=== PATIENT | male | born 1960 | race Caucasian/White ===

== ENCOUNTER 2018-10-07 14:15 | Inpatient (IN) | payer BC ==
[2018-10-07] MEDS ORDERED: NORMAL SALINE 1000 ML 1,000 ML IV ONE (14:23)
[2018-10-07] MEDS ORDERED: CEFTRIAXONE INJ 1000 MG VIAL IV ONE (14:31)
[2018-10-07] MEDS ORDERED: KETOROLAC TROMETHAMINE INJ/PF 30 MG/1 ML SDV IV ONE (14:31)
[2018-10-07] MEDS ORDERED: AZITHROMYCIN INJ 500 MG VIAL IV ONE (14:31)
--- NOTE | 2018-10-07 14:34 | ER Document Report ---
ED Medical Screen (RME) - General Chief Complaint: Fever Stated Complaint: FEVER, CHILLS, DIFFICULTY BREATHING Time Seen by Provider: 10/07/18 14:22 TRAVEL OUTSIDE OF THE [place] IN LAST 30 DAYS: No - HPI Notes: 10/07/18 14:32 Patient is a 58-year-old male that presents to the emergency department for chief complaint of fevers shortness of breath and dysuria. Patient reports about 1 week of myalgias fevers and chills. He had a negative outpatient influenza test. He has been having a cough and states he had a negative chest x -ray at his primary care doctor's office. His PCP did start him on Augmentin which he took 1 dose yesterday and 1 dose this morning. Patient had also been taking Bactrim for the last 8 days for prostatitis, the Bactrim was stopped yesterday when his PCP started Augmentin. He has a history of partial lung removal secondary to ruptured blebs. His last antipyretic was Tylenol at 1130 this morning ROS: GENERAL: fever,chills CV: Denies chest pain PHYSICAL EXAMINATION: GENERAL: Well-appearing, well-nourished and in no acute distress. HEAD: Atraumatic, normocephalic. EYES: Pupils equal round extraocular movements intact, conjunctiva are normal. ENT: Nares patent NECK: Normal range of motion LUNGS: No respiratory distress Musculoskeletal: Normal range of motion NEUROLOGICAL: Normal speech, normal gait. PSYCH: Normal mood, normal affect. MDM: Patient seen and examined for rapid initial assessment. Vital signs reviewed. A comprehensive ED assessment and evaluation of the patient, analysis of test results and completion of the medical decision making process will be conducted by additional ED providers. - Related Data Allergies/Adverse Reactions: No Known Allergies Allergy (Unverified 10/07/18 14:16) Physical Exam - Vital signs Vitals: Temp Pulse Resp BP Pulse Ox 102.8 F H 110 H 18 126/78 H 100 10/07/18 14:19 10/07/18 14:19 10/07/18 14:19 10/07/18 14:19 10/07/18 14:19 Course - Vital Signs Vital signs: Temp Pulse Resp BP Pulse Ox 102.8 F H 110 H 18 126/78 H 100 10/07/18 14:19 10/07/18 14:19 10/07/18 14:19 10/07/18 14:19 10/07/18 14:19
--- NOTE | 2018-10-07 15:19 | RADIOLOGY REPORT (SQ) ---
EXAM DESCRIPTION: CHEST SINGLE VIEW COMPLETED DATE/TIME: 10/07/2018 3:07 pm REASON FOR STUDY: cough COMPARISON: None. EXAM PARAMETERS: NUMBER OF VIEWS: One view. TECHNIQUE: Single frontal radiographic view of the chest acquired. RADIATION DOSE: NA LIMITATIONS: None. FINDINGS: LUNGS AND PLEURA: No opacities, masses or pneumothorax. No pleural effusion. MEDIASTINUM AND HILAR STRUCTURES: No masses. Contour normal. HEART AND VASCULAR STRUCTURES: Heart normal in size. Normal vasculature. BONES: No acute findings. HARDWARE: None in the chest. OTHER: No other significant finding. IMPRESSION: NO ACUTE RADIOGRAPHIC FINDING IN THE CHEST. TECHNICAL DOCUMENTATION: JOB ID: [id number] [employer]- All Rights Reserved Reading location - IP/workstation name: [email or web address]
[2018-10-07 15:44] LABS: ABSOLUTE EOSINOPHILS # (AUTO) 0.1 10^3/uL (0.0-0.6); ABSOLUTE MONOCYTES (AUTO) 0.8 10^3/uL (0.1-1.4); ABSOLUTE NEUT (AUTO) 10.7 10^3/uL (1.7-8.2); BASOPHILS % (AUTO) 0.2 % (0-2); EOSINOPHILS % (AUTO) 1.1 % (0-6); HEMATOCRIT 46.9 % (37.9-51.0); HEMOGLOBIN 15.7 g/dL (13.5-17.0); LYMPHOCYTES % (AUTO) 7.8 % (13-45); MEAN CORPUSCULAR HEMOGLOBIN 33.3 pg (27.0-33.4); MEAN CORPUSCULAR HGB CONC 33.6 g/dL (32.0-36.0); MEAN CORPUSCULAR VOLUME 99 fl (80-97); MONOCYTES % (AUTO) 6.4 % (3-13); PLATELET COUNT 194 10^3/uL (150-450); RED BLOOD COUNT 4.73 10^6/uL (4.35-5.55); RED CELL DISTRIBUTION WIDTH 13.6 % (11.5-14.0); SEGMENTED NEUTROPHILS % (AUTO) 84.5 % (42-78); TOTAL CELLS COUNTED % (AUTO) 100 %; WHITE BLOOD COUNT 12.7 10^3/uL (4.0-10.5)
[2018-10-07 15:46] LABS: APPEARANCE,URINE SLIGHTLY-CLOUDY; BILIRUBIN,URINE NEGATIVE (NEGATIVE); COLOR,URINE AMBER; GLUCOSE, URINE NEGATIVE (NEGATIVE); KETONES,URINE TRACE mg/dL (NEGATIVE); LEUKOCYTE ESTERASE,URINE NEGATIVE (NEGATIVE); NITRITE,URINE NEGATIVE (NEGATIVE); PROTEIN,URINE 100 mg/dL (NEGATIVE); URINE SPECIFIC GRAVITY 1.034
[2018-10-07] MEDS ORDERED: METOCLOPRAMIDE HCL INJ/PF 10 MG/2 ML SDV IV ONE ×2 (15:48→17:53)
[2018-10-07] MEDS ORDERED: DIPHENHYDRAMINE HCL 50 MG/ML VIAL IV ONE (15:49)
[2018-10-07] MEDS ORDERED: RINGERS SOLUTION,LACTATED 1,000 ML IV ONE ×2 (15:49→16:16)
--- NOTE | 2018-10-07 15:57 | ER Document Report ---
ED General <TOY VALDIVIA - Last Filed: 10/07/18 21:07> <ROSA ANGELA - Last Filed: 10/07/18 21:57> - General Mode of Arrival: Ambulatory Information source: Patient, Parent, [facility] Records TRAVEL OUTSIDE OF THE [place] IN LAST 30 DAYS: No - HPI Onset: Other Onset/Duration: Gradual, Intermittent Quality of pain: Achy, Cramping Severity: Mild Associated symptoms: Body/muscle aches, Nonproductive cough, Earache, Fever, Hurts to breath, Nausea, Shortness of breath, Weakness. denies: Chest pain, Diarrhea, Vomiting Exacerbated by: Denies Relieved by: Denies Similar symptoms previously: Yes Recently seen / treated by doctor: Yes <NEISHA HUBER - Last Filed: 10/08/18 09:37> - General Chief Complaint: Fever Stated Complaint: FEVER, CHILLS, DIFFICULTY BREATHING Time Seen by Provider: 10/07/18 14:22 Notes: 58-year-old male with COPD presents with complaint of fever, chills, dysuria, cough that has been ongoing for approximately 2 weeks. Patient states that 10 days ago he had significant rigors throughout the day. At that time he had a fever and took Tylenol which resolved the fever and his chills. Patient states that he has had intermittent fevers for the last 2 weeks. He was seen by his primary care physician and placed on Bactrim for prostatitis and when reexamined yesterday was placed on Augmentin unclear what the Augmentin was for.. Patient has a remote story of hepatitis C. He had a history of IV drug abuse but has not used in over 25 years. He does admit to occasionally still smoking. Patient admits to an intermittent abdominal pain, intermittent headache, pain with inspiration, intermittent cough. (NEISHA HUBER) - Related Data Allergies/Adverse Reactions: No Known Allergies Allergy (Unverified 10/07/18 14:16) Past Medical History - General Information source: Patient, Relative, [facility] Records - Social History Smoking Status: Current Some Day Smoker Cigarette use (# per day): Yes - 1 Smoking Education Provided: Yes - Smoking cessation counseling was provided for 4 minutes at the bedside Frequency of alcohol use: Rare Drug Abuse: None Lives with: Spouse/Significant other Family History: Reviewed & Not Pertinent Patient has suicidal ideation: No Patient has homicidal ideation: No Pulmonary Medical History: Reports: Hx COPD Renal/ Medical History: Denies: Hx Peritoneal Dialysis <NEISHA HUBER - Last Filed: 10/08/18 09:37> Review of Systems - Review of Systems Constitutional: Fever, Malaise, Recent illness EENT: Nose congestion Cardiovascular: denies: Chest pain, Dizziness Respiratory: Cough, Short of breath Gastrointestinal: Abdominal pain. denies: Vomiting, Black stools Genitourinary: Dysuria Male Genitourinary: Other - Enlarged prostate Musculoskeletal: Muscle pain, Muscle stiffness Skin: denies: Rash Hematologic/Lymphatic: No symptoms reported Neurological/Psychological: Headaches. denies: Confusion, Weakness, Seizure, Numbness -: Yes All other systems reviewed and negative <NEISHA HUBER - Last Filed: 10/08/18 09:37> Physical Exam <SHEATOY - Last Filed: 10/07/18 21:07> <ROSA ANGELA - Last Filed: 10/07/18 21:57> - Vital signs Interpretation: Tachycardic, Febrile <NEISHA HUBER - Last Filed: 10/08/18 09:37> - Vital signs Vitals: Temp Pulse Resp BP Pulse Ox 102.8 F H 110 H 18 126/78 H 100 10/07/18 14:19 10/07/18 14:19 10/07/18 14:19 10/07/18 14:19 10/07/18 14:19 - Notes Notes: PHYSICAL EXAMINATION: GENERAL: Thin, ill-appearing, no acute distress HEAD: Atraumatic, normocephalic. EYES: Pupils equal round and reactive to light, extraocular movements intact, sclera anicteric, conjunctiva are normal. ENT: Nares patent, oropharynx clear without exudates. Moist mucous membranes. No nuchal rigidity no meningismus. NECK: Normal range of motion, supple without lymphadenopathy LUNGS: Breath sounds clear to auscultation bilaterally and equal. No wheezes rales or rhonchi. HEART: Tachycardic with regular rhythm no murmurs. ABDOMEN: Diffuse abdominal tenderness without guarding or rebound. Musculoskeletal: Normal range of motion, no pitting or edema. No cyanosis. NEUROLOGICAL: Cranial nerves grossly intact. Normal speech, normal gait. Normal sensory, motor exams PSYCH: Normal mood, normal affect. SKIN: Warm, Dry, normal turgor, no rashes or lesions noted. (NEISHA HUBER) Course - Laboratory Result Diagrams: 10/07/18 15:07 10/07/18 15:07 <TOY VALDIVIA - Last Filed: 10/07/18 21:07> - Laboratory Result Diagrams: 10/07/18 15:07 10/07/18 15:07 <ROSA ANGELA - Last Filed: 10/07/18 21:57> - Laboratory Result Diagrams: 10/08/18 05:33 10/07/18 15:07 - Diagnostic Test Radiology reviewed: Image reviewed, Reports reviewed <NEISHA HUBER - Last Filed: 10/08/18 09:37> - Re-evaluation Re-evalutation: 10/07/18 19:27 Patient has been signed out to me by Dr. Huber. Patient is a 58-year-old male with COPD and history of IV drug use over 10 years ago, presents to the department complaining of multiple symptoms including fever, chills, dysuria, cough, headache, abdominal pain, and pain with inspiration intermittently for the last 2 weeks. She states the patient visited his PCP and was placed on Bactrim for prostatitis and was reexamined yesterday and had his medication changed to Augmentin for an unclear reason. also complains of mild disorientation and mild diarrhea. She denies any back pain or vomiting or a history of kidney problems. Blood work, a chest x-ray, CT of the chest and abdomen and CT of the abdomen and pelvis was obtained. Patient is currently receiving an ultrasound of the gall bladder. (TOY VALDIVIA) 10/07/18 21:57 Ultrasound of gallbladder does not show any signs of stone, obstruction, pericholecystic fluid or thickening. Patient is reexamined, he has defervesced and the fever has since returned, he is alert and oriented x3, no confusion, no neck stiffness, no evidence of meningitis or suffered encephalitis. I do not believe a lumbar puncture is indicated at this time. 10/07/18 22:00 Patient has developed a new rash since arriving in the [place], it is erythematous, 2-3 mm, scattered diffusely across his arms legs, trunk and buttocks, it is blanchable, it is not raised, there are no blisters and no sloughing, negative Nikolsky sign. Patient denies any tick exposure, does not have any dogs. Discussed with hospitalist the possibility of testing for Edison spotted fever. Hospitalist does not see the utility in that lab at this time, suggest simply continuing the antibiotics that have been started instead. Rectal exam does not reveal any tenderness and does not reveal an enlarged prostate. At present I do not know what is causing his fever or his elevated lactate, he also has acute kidney injury, discussed case with hospitalist who agrees to accept the patient to his service in observation status to the medical floor. (ROSA ANGELA) 10/07/18 18:00 Laboratory 10/07/18 10/07/18 10/07/18 15:07 15:07 15:07 WBC 12.7 H RBC 4.73 Hgb 15.7 Hct 46.9 MCV 99 H MCH 33.3 MCHC 33.6 RDW 13.6 Plt Count 194 Seg Neutrophils % 84.5 H Lymphocytes % 7.8 L Monocytes % 6.4 Eosinophils % 1.1 Basophils % 0.2 Absolute Neutrophils 10.7 H Absolute Lymphocytes 1.0 Absolute Monocytes 0.8 Absolute Eosinophils 0.1 Absolute Basophils 0.0 Sodium 142.9 Potassium 4.2 Chloride 98 Carbon Dioxide 33 H Anion Gap 12 BUN 21 H Creatinine 1.44 H Est GFR ( Amer) > 60 Est GFR (Non-Af Amer) 50 L Glucose 144 H Lactic Acid 4.4 H Calcium 9.6 Total Bilirubin 0.9 Direct Bilirubin 0.4 Neonat Total Bilirubin Not Reportable Neonat Direct Bilirubin Not Reportable Neonat Indirect Bili Not Reportable AST 42 ALT 18 L Alkaline Phosphatase 73 Total Protein 8.6 H Albumin 4.7 Urine Color Urine Appearance Urine pH Ur Specific [place] Urine Protein Urine Glucose (UA) Urine Ketones Urine Blood Urine Nitrite Urine Bilirubin Urine Urobilinogen Ur Leukocyte Esterase Urine WBC (Auto) Urine RBC (Auto) Squamous Epi Cells Auto Urine Mucus (Auto) Urine Ascorbic Acid Urine Opiates Screen Urine Methadone Screen Ur Barbiturates Screen Ur Phencyclidine Scrn Ur Amphetamines Screen U Benzodiazepines Scrn Urine Cocaine Screen U Marijuana (THC) Screen Influenza A (Rapid) Influenza B (Rapid) 10/07/18 10/07/18 10/07/18 15:07 15:07 15:07 WBC RBC Hgb Hct MCV MCH MCHC RDW Plt Count Seg Neutrophils % Lymphocytes % Monocytes % Eosinophils % Basophils % Absolute Neutrophils Absolute Lymphocytes Absolute Monocytes Absolute Eosinophils Absolute Basophils Sodium Potassium Chloride Carbon Dioxide Anion Gap BUN Creatinine Est GFR ( Amer) Est GFR (Non-Af Amer) Glucose Lactic Acid Calcium Total Bilirubin Direct Bilirubin Neonat Total Bilirubin Neonat Direct Bilirubin Neonat Indirect Bili AST ALT Alkaline Phosphatase Total Protein Albumin Urine Color FABIOLA Urine Appearance SLIGHTLY-CLOUDY Urine pH 5.0 Ur Specific [place] 1.034 Urine Protein 100 H Urine Glucose (UA) NEGATIVE Urine Ketones TRACE H Urine Blood NEGATIVE Urine Nitrite NEGATIVE Urine Bilirubin NEGATIVE Urine Urobilinogen 4.0 H Ur Leukocyte Esterase NEGATIVE Urine WBC (Auto) 1 Urine RBC (Auto) 2 Squamous Epi Cells Auto <1 Urine Mucus (Auto) MANY Urine Ascorbic Acid NEGATIVE Urine Opiates Screen NEGATIVE Urine Methadone Screen NEGATIVE Ur Barbiturates Screen NEGATIVE Ur Phencyclidine Scrn NEGATIVE Ur Amphetamines Screen NEGATIVE U Benzodiazepines Scrn NEGATIVE Urine Cocaine Screen NEGATIVE U Marijuana (THC) Screen NEGATIVE Influenza A (Rapid) NEGATIVE Influenza B (Rapid) NEGATIVE Chest X-Ray 10/07/18 14:23 IMPRESSION: NO ACUTE RADIOGRAPHIC FINDING IN THE CHEST. Chest/Abdomen CTA 10/07/18 15:57 IMPRESSION: 1. There is no evidence of pulmonary embolus. 2. Emphysematous changes. 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 3. Nonspecific multiple mediastinal lymph nodes. Abdomen/Pelvis CTA 10/07/18 16:12 IMPRESSION: 1. Possible cholelithiasis. 2. Possible constipation. Cannot exclude an enteritis. 3. Small umbilical hernia. 4. 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 10/07/18 18:36 58-year-old male with COPD presents with complaint of fever, chills, cough, intermittent abdominal pain. Patient has been on Bactrim and Augmentin over the last 2 weeks that were prescribed from his primary care physician's office. Upon arrival patient is tachycardic, febrile and with multiple vague complaints of intermittent cough, intermittent headache, intermittent abdominal pain. He denies vomiting, diarrhea. He has a remote history of IV drug use but has not used in over 25 years. He occasionally still uses tobacco. Exam is essentially unremarkable except for some mild diffuse abdominal pain. During my examination patient jumps up in pain and states he is having a lot of spasm in his abdomen. Azithromycin and ceftriaxone were ordered by the physician in triage. CBC shows a leukocytosis of 12, no anemia. CMP does show a creatinine of 1.44. There is no previous blood work to compare. Lactate 4.4. CTA of the chest and abdomen were performed due to the patient's complaint of pain with inspiration and severe abdominal pain. This showed no evidence of PE, possible cholelithiasis with a questionable stone in the neck of the gallbladder. 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 Patient was given IV fluids, Zosyn, Zofran. 10/07/18 18:40 10/07/18 18:47 On reevaluation patient still complaining of left lower quadrant abdominal pain. He now mentions that 15 years ago they were concerned that he may have aspergillosis but never underwent treatment due to being homeless. 10/07/18 18:47 Right upper quadrant ultrasound pending. Patient will be signed out to Dr. Angela with RUQ U/S pending. Patient will need admission but may require transfer if found to have stone in CBD. 10/08/18 09:36 (NEISHA HUBER) - Vital Signs Vital signs: Temp Pulse Resp BP Pulse Ox 98.7 F 78 18 133/71 H 97 10/08/18 00:24 10/08/18 00:24 10/08/18 00:24 10/08/18 00:24 10/08/18 00:24 - Laboratory Laboratory results interpreted by me: 10/07/18 10/07/18 10/07/18 15:07 15:07 15:07 WBC 12.7 H MCV 99 H Seg Neutrophils % 84.5 H Lymphocytes % 7.8 L Absolute Neutrophils 10.7 H Carbon Dioxide 33 H BUN 21 H Creatinine 1.44 H Est GFR (Non-Af Amer) 50 L Glucose 144 H Lactic Acid 4.4 H ALT 18 L C-Reactive Protein Total Protein 8.6 H Urine Protein Urine Ketones Urine Urobilinogen 10/07/18 10/07/18 15:07 15:07 WBC MCV Seg Neutrophils % Lymphocytes % Absolute Neutrophils Carbon Dioxide BUN Creatinine Est GFR (Non-Af Amer) Glucose Lactic Acid ALT C-Reactive Protein 77.0 H Total Protein Urine Protein 100 H Urine Ketones TRACE H Urine Urobilinogen 4.0 H Discharge <TOY VALDIVIA - Last Filed: 10/07/18 21:07> - Discharge Admitting Provider: [facility] - [facility] Admitted: Medical Floor <ROSA ANGELA - Last Filed: 10/07/18 21:57> <NEISHA HUBER - Last Filed: 10/08/18 09:37> - Discharge Clinical Impression: Fever of unknown origin, ARACELI (acute kidney injury) Condition: Stable Disposition: ADMITTED OBSERVATION Scribe Attestation: 10/07/18 22:03 I personally performed the services described in the documentation, reviewed and edited the documentation which was dictated to the scribe in my presence, and it accurately records my words and actions. (ROSA ANGELA)
[2018-10-07 16:06] LABS: ALANINE AMINOTRANSFERASE 18 U/L (21-72); ALBUMIN 4.7 g/dL (3.5-5.0); ALKALINE PHOSPHATASE 73 U/L (38-126); ANION GAP 12 (5-19); ASPARTATE AMINO TRANSFERASE 42 U/L (17-59); BILIRUBIN,DIRECT 0.4 mg/dL (0.0-0.4); BILIRUBIN,TOTAL 0.9 mg/dL (0.2-1.3); BLOOD UREA NITROGEN 21 mg/dL (7-20); CALCIUM 9.6 mg/dL (8.4-10.2); CARBON DIOXIDE 33 mmol/L (22-30); CHLORIDE 98 mmol/L (98-107); GLUCOSE 144 mg/dL (75-110); POTASSIUM 4.2 mmol/L (3.6-5.0); SODIUM 142.9 mmol/L (137-145); TOTAL PROTEIN 8.6 g/dL (6.3-8.2)
[2018-10-07 16:33] LABS: A TYPE INFLUENZA AG NEGATIVE (NEGATIVE); B INFLUENZA AG NEGATIVE (NEGATIVE)
[2018-10-07 16:44] LABS: URINE AMPHETAMINES SCREEN NEGATIVE; URINE BARBITURATES SCREEN NEGATIVE; URINE BENZODIAZEPINES SCREEN NEGATIVE; URINE COCAINE SCREEN NEGATIVE; URINE MARIJUANA (THC) SCREEN NEGATIVE; URINE METHADONE SCREEN NEGATIVE; URINE PHENCYCLIDINE SCREEN NEGATIVE
--- NOTE | 2018-10-07 17:39 | RADIOLOGY REPORT (SQ) ---
EXAM DESCRIPTION: CTA CHEST COMPLETED DATE/TIME: 10/07/2018 5:20 pm REASON FOR STUDY: sob fever COMPARISON: None. TECHNIQUE: CT scan of the chest performed using helical scanning technique with dynamic intravenous contrast injection. Images reviewed with lung, soft tissue and bone windows. Reconstructed coronal and sagittal MPR images reviewed. Additional 3 dimensional post-processing performed to develop Maximal Intensity Projection images (VT P). All images stored on PACS. All CT scanners at this facility use dose modulation, iterative reconstruction, and/or weight based d osing when appropriate to reduce radiation dose to as low as reasonably achievable (ALARA). [facility]: Dose Right [facility]: CareDose [facility]: Dose Right [facility]: Teradose 4D [facility]: Memobox CONTRAST TYPE AND DOSE: 100 mL Omnipaque 350- low osmolar. Contrast bolus adequate for pulmonary arteries and aorta. RENAL FUNCTION: BUN 21 creatinine 1.4 RADIATION DOSE: CT Rad equipment meets quality standard of care and radiation dose reduction techniq ues were employed. CTDIvol: 5.0 - 34.7 mGy. DLP: 2103 mGy-cm. . LIMITATIONS: None. FINDINGS: LUNGS AND PLEURA: Paraseptal emphysematous changes in the apices predominantly but also se en in the lower lobes posteriorly. Mild honeycombing in the lower lobes. AORTA AND GREAT VESSELS: No aneurysm. No dissection. HEART: No pericardial effusion. Moderate to marked coronary artery calcifications. PULMONARY ARTERIES: No emboli visualized in the main pulmonary arteries or the segmental branches. HILAR AND MEDIASTINAL STRUCTURES: There are multiple relatively small nonspecific mediastinal nodes. The largest is in the precarinal area and measures 13 mm. HARDWARE: None in the chest. UPPER ABDOMEN: See separate report of the CT of the abdomen. THYROID AND OTHER SOFT TISSUES: No masses. No adenopathy. BONES: No acute or significant finding. 3D MIPS: Confirm above findings. OTHER: No other significant finding. IMPRESSION: 1. There is no evidence of pulmonary embolus. 2. Emphysematous changes. 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 3. Nonspecific multiple mediastinal lymph nodes. COMMENT: Quality ID # [id number]: Final reports with documentation of one or more dose reduction techniques (e.g., Automated exposure control, adjustment of the mA and/or kV according to patient size, use of iterative reconstruction technique) TECHNICAL DOCUMENTATION: JOB ID: [id number]- All Rights Reserved Reading location - IP/workstation name: [email or web address]
--- NOTE | 2018-10-07 17:48 | RADIOLOGY REPORT (SQ) ---
EXAM DESCRIPTION: CTA ABDOMEN/PELVIS W WO COMPLETED DATE/TIME: 10/07/2018 5:20 pm REASON FOR STUDY: abd pain COMPARISON: None. TECHNIQUE: CT scan of the abdominal aorta extending to the iliac bifurcation performed with and with out intravenous contrast using helical scanning technique with dynamic intravenous contrast injection . Images reviewed with lung, soft tissue, and bone windows. Reconstructed coronal and sagittal MPR im ages reviewed. All images stored on PACS. Advanced 3D imaging as volume rendering, MIPS, SSD performed? yes All CT scanners at this facility use dose modulation, iterative reconstruction, and/or weight based d osing when appropriate to reduce radiation dose to as low as reasonably achievable (ALARA). [facility]: Dose Right [facility]: CareDose [facility]: Dose Right [facility]: Teradose 4D [facility]: My-Apps CONTRAST TYPE AND DOSE: contrast/concentration: Isovue 350.00 mg/ml; Total Contrast Delivered: 100.0 ml; Total Saline Delivered: 90.0 ml RENAL FUNCTION: BUN 21 creatinine 1.4 LIMITATIONS: None. FINDINGS: AORTA AND VESSELS: No aneurysm. No dissection. Renal arteries, SMA, celiac without stenosi s. The celiac trunk is mildly dilated. LUNG BASES: No significant findings. No nodules or infiltrates. LIVER: Normal size. No masses or dilated ducts. SPLEEN: Normal size. No focal lesions. PANCREAS: No masses. No significant calcifications. No adjacent inflammation or peripancreatic fluid collections. Pancreatic duct not dilated. GALLBLADDER: There may be a small gallstone in the neck of the gallbladder. The gallbladder is contr acted. ADRENAL GLANDS: No significant masses or asymmetry. RIGHT KIDNEY AND URETER: No mass, calculi or urinary tract obstruction. LEFT KIDNEY AND URETER: No mass, calculi or urinary tract obstruction. RETROPERITONEUM: No retroperitoneal adenopathy, hemorrhage or masses. BOWEL AND PERITONEAL CAVITY: No bowel mass is seen. There is considerable stool in the colon. There may be fluid in the right colon. APPENDIX: Not identified. ABDOMINAL WALL: Small umbilical hernia contains only fat. BONY STRUCTURES: No significant or acute findings. 3-D IMAGING: Confirms the above findings. OTHER: No other significant finding. IMPRESSION: 1. Possible cholelithiasis. 2. Possible constipation. Cannot exclude an enteritis. 3. Small umbilical hernia. 4. 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 TECHNICAL DOCUMENTATION: JOB ID: [id number] Quality ID # [id number]: Final reports with documentation of one or more dose reduction techniques (e.g., Au tomated exposure control, adjustment of the mA and/or kV according to patient size, use of iterative reconstruction technique) 2010 [email or web address]- All Rights Reserved Reading location - IP/workstation name: [email or web address]
[2018-10-07] MEDS ORDERED: PIPERACILLIN/TAZOBACTAM 3.375 GM VIAL IV ONE (17:59)
--- NOTE | 2018-10-07 19:50 | RADIOLOGY REPORT (SQ) ---
EXAM DESCRIPTION: U/S ABDOMEN LIMITED W/O DOP COMPLETED DATE/TIME: 10/07/2018 7:26 pm REASON FOR STUDY: ? cholith COMPARISON: None. TECHNIQUE: Dynamic and static grayscale images acquired of the abdomen and recorded on PACS. Additio nal selected color Doppler and spectral images recorded. LIMITATIONS: None. FINDINGS: PANCREAS: No masses. Visualized pancreatic duct normal caliber. LIVER: No masses. Echotexture normal. LIVER VASCULATURE: Normal directional flow of the main portal vein and hepatic veins. GALLBLADDER: No stones. Normal wall thickness. No pericholecystic fluid. ULTRASOUND-DETECTED CUNNINGHAM'S SIGN: Negative. INTRAHEPATIC DUCTS AND COMMON DUCT: CBD and intrahepatic ducts normal caliber. No filling defects. INFERIOR VENA CAVA: Normal flow. AORTA: No aneurysm identified. RIGHT KIDNEY: Normal size. Normal echogenicity. No solid or suspicious masses. No hydronephros is. No calcifications. PERITONEAL AND RIGHT PLEURAL SPACE: No ascites or effusions. OTHER: No other significant findings. IMPRESSION: NO ACUTE FINDINGS. TECHNICAL DOCUMENTATION: JOB ID: [id number] 2010 [employer]- All Rights Reserved Reading location - IP/workstation name: [email or web address]
[2018-10-07] MEDS ORDERED: ACETAMINOPHEN 325 MG TABLET PO ONE (21:16)
[2018-10-07] MEDS ORDERED: IBUPROFEN 800 MG TABLET PO ONE (22:00)
[2018-10-08] MEDS ORDERED: IPRATROPIUM/ALBUTEROL 0.5-2.5 MG/3 ML AMPUL NEB PRN (00:14)
[2018-10-08] MEDS ORDERED: MAG HYDROX/AL HYDROX/SIMETH SUSP 30 ML UDCUP PO PRN (00:14)
[2018-10-08 05:44] LABS: ABSOLUTE EOSINOPHILS # (AUTO) 0.2 10^3/uL (0.0-0.6); ABSOLUTE LYMPHOCYTES (AUTO) 0.5 10^3/uL (0.5-4.7); ABSOLUTE MONOCYTES (AUTO) 0.4 10^3/uL (0.1-1.4); ABSOLUTE NEUT (AUTO) 8.4 10^3/uL (1.7-8.2); BASOPHILS % (AUTO) 0.2 % (0-2); EOSINOPHILS % (AUTO) 2.1 % (0-6); HEMATOCRIT 38.7 % (37.9-51.0); LYMPHOCYTES % (AUTO) 5.1 % (13-45); MEAN CORPUSCULAR HEMOGLOBIN 33.7 pg (27.0-33.4); MEAN CORPUSCULAR HGB CONC 34.4 g/dL (32.0-36.0); MEAN CORPUSCULAR VOLUME 98 fl (80-97); MONOCYTES % (AUTO) 4.5 % (3-13); PLATELET COUNT 135 10^3/uL (150-450); RED BLOOD COUNT 3.95 10^6/uL (4.35-5.55); RED CELL DISTRIBUTION WIDTH 13.4 % (11.5-14.0); SEGMENTED NEUTROPHILS % (AUTO) 88.1 % (42-78); TOTAL CELLS COUNTED % (AUTO) 100 %; WHITE BLOOD COUNT 9.5 10^3/uL (4.0-10.5)
[2018-10-08 05:48] LABS: HEMOGLOBIN 13.3 g/dL (13.5-17.0)
[2018-10-08] MEDS: HEPARIN SOD (PORCINE) 5,000 UNIT/ML 1 ML SYRINGE SUBCUT SCH ×3 (05:57→21:10)
[2018-10-08] MEDS ORDERED: VANCOMYCIN HCL 1,500 MG in DEXTROSE 5%-WATER 250 ML IV ONE (06:10)
[2018-10-08] MEDS ORDERED: VANCOMYCIN HCL 0 MG in DEXTROSE 5%-WATER 250 ML IV NR (06:15)
--- NOTE | 2018-10-08 06:20 | PDOC H&P ---
History of Present Illness Admission Date/PCP: 10/07/18 22:05 JOSE ANTONIO SAMUEL NP Patient complains of: Fever History of Present Illness: CHARLIE HEALY is a 58 year old male with history of COPD, tobacco, pulmonary aspergillosis and remote IV drug abuse. He presents with 12 days of spiking fevers, prompting evaluation by primary care who initiated Bactrim. He has had persistent symptoms vague arthralgia, nausea, pelvic discomfort, he denies facial pain, headache, sore throat, chest pain, focal joint pain or urethral discharge. In the emergency room is found to have a leukocytosis, fever of 103.0 and acute renal failure. CTA chest shows hilar adenopathy, abdomen and pelvis are unremarkable, he receives azithromycin, Rocephin and Zosyn then referred to the hospitalist for admission. Past Medical History Pulmonary Medical History: Reports: Chronic Obstructive Pulmonary Disease (COPD) , Pneumonia, Other - Pulmonary aspergillosis Denies: Respiratory Failure, Tuberculosis Psychiatric Medical History: Denies: Depression Past Surgical History Past Surgical History: Reports: Other Social History Information Source: Patient Lives with: Spouse/Significant other Smoking Status: Current Some Day Smoker Frequency of Alcohol Use: None Hx Recreational Drug Use: No Hx Prescription Drug Abuse: No - Advance Directive Resuscitation Status: Full Code Family History Family History: COPD, Hypertension Parental Family History Reviewed: Yes Children Family History Reviewed: Yes Sibling(s) Family History Reviewed.: Yes Medication/Allergy Allergies/Adverse Reactions: No Known Allergies Allergy (Unverified 10/07/18 14:16) Review of Systems Constitutional: PRESENT: as per HPI, anorexia, chills, fatigue, fever(s), night sweats, weakness, weight gain. ABSENT: headache(s) Eyes: ABSENT: visual disturbances Ears: ABSENT: hearing changes Cardiovascular: PRESENT: as per HPI. ABSENT: chest pain, dyspnea on exertion, edema, orthropnea, palpitations Respiratory: ABSENT: cough, hemoptysis, sputum Gastrointestinal: ABSENT: abdominal pain, constipation, diarrhea, hematemesis, hematochezia, nausea, vomiting Genitourinary: ABSENT: difficulty urinating, dysuria, hematuria Musculoskeletal: PRESENT: as per HPI. ABSENT: back pain, deformity, joint swelling Integumentary: ABSENT: rash, wounds Neurological: ABSENT: abnormal gait, abnormal speech, confusion, dizziness, focal weakness, syncope Psychiatric: ABSENT: anxiety, depression, homidical ideation, suicidal ideation Endocrine: ABSENT: cold intolerance, heat intolerance, polydipsia, polyuria Hematologic/Lymphatic: ABSENT: easy bleeding, easy bruising Physical Exam Vital Signs: Temp Pulse Resp BP Pulse Ox 98.7 F 78 18 133/71 H 97 10/08/18 00:24 10/08/18 00:24 10/08/18 00:24 10/08/18 00:24 10/08/18 00:24 Intake & Output 10/06/18 10/07/18 10/08/18 11:59 11:59 11:59 Weight 78.9 kg General appearance: PRESENT: no acute distress, well-developed, well-nourished Head exam: PRESENT: atraumatic, normocephalic Eye exam: PRESENT: conjunctiva pink, EOMI, PERRLA. ABSENT: scleral icterus Ear exam: PRESENT: normal external ear exam Mouth exam: PRESENT: moist, tongue midline Neck exam: ABSENT: carotid bruit, JVD, lymphadenopathy, thyromegaly Respiratory exam: PRESENT: clear to auscultation alvarez. ABSENT: rales, rhonchi, wheezes Cardiovascular exam: PRESENT: RRR, systolic murmur. ABSENT: diastolic murmur, rubs Pulses: PRESENT: normal dorsalis pedis pul Vascular exam: PRESENT: normal capillary refill GI/Abdominal exam: PRESENT: normal bowel sounds, soft. ABSENT: distended, guarding, mass, organolmegaly, rebound, tenderness Rectal exam: PRESENT: deferred Extremities exam: PRESENT: full ROM. ABSENT: calf tenderness, clubbing, pedal edema Neurological exam: PRESENT: alert, awake, oriented to person, oriented to place , oriented to time, oriented to situation, CN II-XII grossly intact. ABSENT: motor sensory deficit Psychiatric exam: PRESENT: appropriate affect, normal mood. ABSENT: homicidal ideation, suicidal ideation Skin exam: PRESENT: dry, intact, warm. ABSENT: cyanosis, rash Results Laboratory Results: 10/08/18 05:33 10/08/18 05:33 WBC 9.5 RBC 3.95 L Hgb 13.3 L D Hct 38.7 MCV 98 H MCH 33.7 H MCHC 34.4 RDW 13.4 Plt Count 135 L Seg Neutrophils % 88.1 H Lymphocytes % 5.1 L Monocytes % 4.5 Eosinophils % 2.1 Basophils % 0.2 Absolute Neutrophils 8.4 H Absolute Lymphocytes 0.5 Absolute Monocytes 0.4 Absolute Eosinophils 0.2 Absolute Basophils 0.0 Impressions: Chest X-Ray 10/07/18 14:23 IMPRESSION: NO ACUTE RADIOGRAPHIC FINDING IN THE CHEST. Chest/Abdomen CTA 10/07/18 15:57 IMPRESSION: 1. There is no evidence of pulmonary embolus. 2. Emphysematous changes. 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 3. Nonspecific multiple mediastinal lymph nodes. Abdomen/Pelvis CTA 10/07/18 16:12 IMPRESSION: 1. Possible cholelithiasis. 2. Possible constipation. Cannot exclude an enteritis. 3. Small umbilical hernia. 4. 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 Abdomen Ultrasound 10/07/18 17:54 IMPRESSION: NO ACUTE FINDINGS. Assessment & Plan - Diagnosis (1) Fever of unknown origin Is this a current diagnosis for this admission?: Yes Plan: Benign exam and workup with exception to hilar adenopathy, history of IV drug abuse with systolic murmur and pulmonary aspergillosis. Will initiate IV vancomycin, obtain blood cultures with next fever and 2D echo. (2) Endocarditis Is this a current diagnosis for this admission?: Yes Plan: Suggested by systolic murmur and history, and Device initiated, follow-up blood culture and 2D echo (3) ARACELI (acute kidney injury) Plan: Likely secondary to 10 days of Bactrim, avoid nephrotoxic meds and doses reevaluate chemistry - Time Time Spent: 50 to 70 Minutes - Inpatient Certification Medical Necessity: Need Close Monitoring Due to Risk of Patient Decompensation
[2018-10-08] MEDS: ACETAMINOPHEN 325 MG TABLET PO PRN ×3 (06:24→18:16)
[2018-10-08] MEDS: DOCUSATE SODIUM 100 MG CAPSULE PO SCH ×2 (10:44→18:08)
[2018-10-08] MEDS: VANCOMYCIN HCL 750 MG in DEXTROSE 5%-WATER 250 ML IV SCH ×2 (10:46→21:31)
--- NOTE | 2018-10-08 15:48 | PDOC PROGRESS REPORT ---
Subjective Progress Note for:: 10/08/18 Subjective:: CHARLIE HEALY is a 58 year old male with history of COPD, tobacco abuse, pulmonary aspergillosis, remote history of IV drug abuse, hepatitis C, history of incarceration, lung collapse due to rupture of a bolus status post surgery, pulmonary aspergillosis. Presented to ED complaining of 12 days of spiking fevers, prompting evaluation by primary care who initiated Bactrim by PCP. He has had persistent symptoms vague arthralgia, nausea, pelvic discomfort, persistent watery diarrhea about 7 episodes per day is being initiated on Bactrim. Denies denies facial pain, headache, sore throat, chest pain, focal joint pain vision changes, urethral discharge, weight loss, sweats, recent travel, sick contacts, tick bites, herbal medication, history of lymphoma or leukemia or any other malignancy, or HIV. In the emergency room is found to have a leukocytosis, fever of 103.0 and acute renal failure. CTA chest shows hilar adenopathy, abdomen and pelvis are unremarkable, he received azithromycin, Rocephin and Zosyn then referred to the hospitalist for admission. On physical examination and was noted that he had diffuse purpuric rash in his trunk that he had not noticed prior to admission. 10/07/2018. Patient is comfortably sitting in his bed stating that his fever has subsided since admission but he still having persistent diarrhea. Denies any chest pain, nausea, vomiting, shortness of breath, abdominal pain, constipation or any urinary symptoms. Reason For Visit: FUO ARF Physical Exam Vital Signs: Temp Pulse Resp BP Pulse Ox 102.8 F H 98 19 140/61 H 95 10/08/18 12:42 10/08/18 12:42 10/08/18 12:42 10/08/18 12:42 10/08/18 12:42 Intake & Output 10/07/18 10/08/18 10/09/18 06:59 06:59 06:59 Intake Total 722 Balance 722 Weight 78.9 kg General appearance: PRESENT: no acute distress, well-developed, well-nourished Eye exam: PRESENT: conjunctiva pink, EOMI, PERRLA. ABSENT: scleral icterus Mouth exam: PRESENT: moist, tongue midline Teeth exam: PRESENT: dental caries Neck exam: ABSENT: carotid bruit, JVD, lymphadenopathy, thyromegaly Respiratory exam: PRESENT: clear to auscultation alvarez. ABSENT: rales, rhonchi, wheezes Cardiovascular exam: PRESENT: RRR, systolic murmur, tachycardia. ABSENT: diastolic murmur, rubs Pulses: PRESENT: normal dorsalis pedis pul Vascular exam: PRESENT: normal capillary refill GI/Abdominal exam: PRESENT: normal bowel sounds, soft. ABSENT: distended, guarding, mass, organolmegaly, rebound, tenderness Extremities exam: PRESENT: full ROM. ABSENT: calf tenderness, clubbing, pedal edema Neurological exam: PRESENT: alert, awake, oriented to person, oriented to place , oriented to time, oriented to situation, CN II-XII grossly intact. ABSENT: motor sensory deficit Psychiatric exam: PRESENT: appropriate affect, normal mood. ABSENT: homicidal ideation, suicidal ideation Skin exam: PRESENT: dry, petechiae - Diffuse now on palpable nontender noninfected petechial rash over the front and back of the trunk. No Janeway or lesions or Osler nodes. Palms and soles are clear., warm. ABSENT: cyanosis, rash Results Laboratory Results: 10/08/18 05:33 10/08/18 05:33 WBC 9.5 RBC 3.95 L Hgb 13.3 L D Hct 38.7 MCV 98 H MCH 33.7 H MCHC 34.4 RDW 13.4 Plt Count 135 L Seg Neutrophils % 88.1 H Lymphocytes % 5.1 L Monocytes % 4.5 Eosinophils % 2.1 Basophils % 0.2 Absolute Neutrophils 8.4 H Absolute Lymphocytes 0.5 Absolute Monocytes 0.4 Absolute Eosinophils 0.2 Absolute Basophils 0.0 Impressions: Chest X-Ray 10/07/18 14:23 IMPRESSION: NO ACUTE RADIOGRAPHIC FINDING IN THE CHEST. Chest/Abdomen CTA 10/07/18 15:57 IMPRESSION: 1. There is no evidence of pulmonary embolus. 2. Emphysematous changes. 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 3. Nonspecific multiple mediastinal lymph nodes. Abdomen/Pelvis CTA 10/07/18 16:12 IMPRESSION: 1. Possible cholelithiasis. 2. Possible constipation. Cannot exclude an enteritis. 3. Small umbilical hernia. 4. 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 Abdomen Ultrasound 10/07/18 17:54 IMPRESSION: NO ACUTE FINDINGS. Assessment & Plan - Diagnosis (1) Fever of unknown origin Is this a current diagnosis for this admission?: Yes Plan: CT chest positive for nonspecific multiple mediastinal lymph nodes. Otherwise CT abdomen chest and pelvis unremarkable. Erythematous rash in the trunk sparing the palms and soles. Denies any recent travel, sick contacts, tick bites, myalgia or arthralgia. He is monogamous and denies any history of STDs. Liver enzymes within normal limits. Urine drug screen negative. HIV negative. Corrected calcium 9.0. Leukocytosis resolved. Blood and urine cultures negative so far. Reactive protein 77, ESR 27. Mild thrombocytopenia. Pending hepatitis panel, 2D echo. We will order C. difficile toxin , obtain serologies to rule out tickborne disease. Continue current antibiotics. Follow-up cultures. (2) ARACELI (acute kidney injury) Is this a current diagnosis for this admission?: Yes Plan: Likely due to Bactrim. DC Bactrim. Avoid nephrotoxic agents. Monitor volume status and electrolytes. Abdominal CT and ultrasound negative for any acute kidney abnormalities. (3) Endocarditis Qualifiers: Infective endocarditis organism: unspecified organism Is this a current diagnosis for this admission?: Yes Plan: Negative for Janeway lesion or Osler nodes. Pending 2D echo. Continue broad-spectrum antibiotics. Follow blood culture. (4) Rash Is this a current diagnosis for this admission?: Yes Plan: Likely due to Bactrim. DC Bactrim. Workup to rule out any tickborne diseases. (5) Diarrhea Is this a current diagnosis for this admission?: Yes Plan: Likely induced by Bactrim. Patient is said that he started having diarrhea after being initiated on Bactrim. Will check for C. difficile, stool ova and parasite, stool leukocyte, stool Gram stain and culture. Monitor volume status. Continue IV fluids.
[2018-10-08] MEDS ORDERED: DEXTROSE 5%-NORMAL SALINE 1,000 ML IV PRN (16:28)
[2018-10-08] MEDS ORDERED: DOXYCYCLINE HYCLATE 100 MG TABLET PO ONE ×2 (21:37→21:38)
[2018-10-08] MEDS: DOXYCYCLINE HYCLATE 100 MG TABLET PO SCH (22:07)
[2018-10-09 05:54] LABS: ABSOLUTE EOSINOPHILS # (AUTO) 0.2 10^3/uL (0.0-0.6); ABSOLUTE LYMPHOCYTES (AUTO) 0.9 10^3/uL (0.5-4.7); ABSOLUTE MONOCYTES (AUTO) 0.4 10^3/uL (0.1-1.4); ABSOLUTE NEUT (AUTO) 4.7 10^3/uL (1.7-8.2); BASOPHILS % (AUTO) 0.5 % (0-2); EOSINOPHILS % (AUTO) 3.9 % (0-6); HEMATOCRIT 41.4 % (37.9-51.0); HEMOGLOBIN 14.3 g/dL (13.5-17.0); LYMPHOCYTES % (AUTO) 14.5 % (13-45); MEAN CORPUSCULAR HEMOGLOBIN 33.4 pg (27.0-33.4); MEAN CORPUSCULAR HGB CONC 34.5 g/dL (32.0-36.0); MEAN CORPUSCULAR VOLUME 97 fl (80-97); MONOCYTES % (AUTO) 5.9 % (3-13); PLATELET COUNT 138 10^3/uL (150-450); RED BLOOD COUNT 4.28 10^6/uL (4.35-5.55); RED CELL DISTRIBUTION WIDTH 13.4 % (11.5-14.0); SEGMENTED NEUTROPHILS % (AUTO) 75.2 % (42-78); TOTAL CELLS COUNTED % (AUTO) 100 %; WHITE BLOOD COUNT 6.3 10^3/uL (4.0-10.5)
[2018-10-09 06:07] LABS: ALANINE AMINOTRANSFERASE 30 U/L (21-72); ALBUMIN 3.7 g/dL (3.5-5.0); ALKALINE PHOSPHATASE 66 U/L (38-126); ANION GAP 13 (5-19); ASPARTATE AMINO TRANSFERASE 34 U/L (17-59); BILIRUBIN,DIRECT 0.2 mg/dL (0.0-0.4); BILIRUBIN,TOTAL 0.4 mg/dL (0.2-1.3); BLOOD UREA NITROGEN 13 mg/dL (7-20); CALCIUM 8.7 mg/dL (8.4-10.2); CARBON DIOXIDE 24 mmol/L (22-30); CHLORIDE 101 mmol/L (98-107); GLUCOSE 109 mg/dL (75-110); POTASSIUM 3.9 mmol/L (3.6-5.0); SODIUM 137.9 mmol/L (137-145); TOTAL PROTEIN 6.6 g/dL (6.3-8.2)
[2018-10-09] MEDS: HEPARIN SOD (PORCINE) 5,000 UNIT/ML 1 ML SYRINGE SUBCUT SCH ×3 (06:34→22:07)
[2018-10-09] MEDS: DOCUSATE SODIUM 100 MG CAPSULE PO SCH ×2 (10:09→17:17)
[2018-10-09] MEDS: DOXYCYCLINE HYCLATE 100 MG TABLET PO SCH ×2 (10:10→22:11)
[2018-10-09] MEDS: VANCOMYCIN HCL 750 MG in DEXTROSE 5%-WATER 250 ML IV SCH ×2 (11:10→22:13)
--- NOTE | 2018-10-09 11:29 | PDOC PROGRESS REPORT ---
Subjective Progress Note for:: 10/09/18 Subjective:: CHARLIE HEALY is a 58 year old male with history of COPD, tobacco abuse, pulmonary aspergillosis, remote history of IV drug abuse, hepatitis C, history of incarceration, lung collapse due to rupture of a bolus status post surgery, pulmonary aspergillosis. Presented to ED complaining of 12 days of spiking fevers, prompting evaluation by primary care who initiated Bactrim by PCP. He has had persistent symptoms vague arthralgia, nausea, pelvic discomfort, persistent watery diarrhea about 7 episodes per day is being initiated on Bactrim. Denies denies facial pain, headache, sore throat, chest pain, focal joint pain vision changes, urethral discharge, weight loss, sweats, recent travel, sick contacts, tick bites, herbal medication, history of lymphoma or leukemia or any other malignancy, or HIV. In the emergency room is found to have a leukocytosis, fever of 103.0 and acute renal failure. CTA chest shows hilar adenopathy, abdomen and pelvis are unremarkable, he received azithromycin, Rocephin and Zosyn then referred to the hospitalist for admission. On physical examination and was noted that he had diffuse purpuric rash in his trunk that he had not noticed prior to admission. 10/08/2018. Patient is comfortably sitting in his bed stating that his fever has subsided since admission but he still having persistent diarrhea. Denies any chest pain, nausea, vomiting, shortness of breath, abdominal pain, constipation or any urinary symptoms. 10/09/2018. No acute events overnight. Patient is currently sitting in his bed not in acute distress and very pleasant and cooperative with physical examination. Patient has had any fever overnight and his diarrhea is improving. He is stating that his rash on his back in 4 months or getting more diffuse however still denying any pain itching or any sign of infection. Reason For Visit: FUO ARF Physical Exam Vital Signs: Temp Pulse Resp BP Pulse Ox 98.6 F 80 15 112/59 L 94 10/09/18 08:15 10/09/18 08:37 10/09/18 08:37 10/09/18 08:15 10/09/18 08:37 Intake & Output 10/08/18 10/09/18 10/10/18 06:59 06:59 06:59 Intake Total 1862 Output Total 200 Balance 1662 Weight 78.9 kg 79.2 kg General appearance: PRESENT: no acute distress, well-developed, well-nourished Respiratory exam: PRESENT: clear to auscultation alvarez. ABSENT: rales, rhonchi, wheezes Cardiovascular exam: PRESENT: RRR. ABSENT: diastolic murmur, rubs, systolic murmur GI/Abdominal exam: PRESENT: normal bowel sounds, soft. ABSENT: distended, guarding, mass, organolmegaly, rebound, tenderness Extremities exam: PRESENT: full ROM. ABSENT: calf tenderness, clubbing, pedal edema Musculoskeletal exam: PRESENT: ambulatory, deformity, dislocation, full ROM, normal inspection, tenderness, other Neurological exam: PRESENT: alert, awake, oriented to person, oriented to place , oriented to time, oriented to situation, CN II-XII grossly intact. ABSENT: motor sensory deficit Skin exam: PRESENT: rash - Rash is getting more diffuse looking more like a morbilliform rash. Nonpalpable, erythematous, nontender nonblanching. Results Laboratory Results: 10/09/18 05:39 10/09/18 05:39 10/08/18 10/09/18 10/09/18 20:45 05:39 05:39 WBC 6.3 RBC 4.28 L Hgb 14.3 Hct 41.4 MCV 97 MCH 33.4 MCHC 34.5 RDW 13.4 Plt Count 138 L Seg Neutrophils % 75.2 Lymphocytes % 14.5 Monocytes % 5.9 Eosinophils % 3.9 Basophils % 0.5 Absolute Neutrophils 4.7 Absolute Lymphocytes 0.9 Absolute Monocytes 0.4 Absolute Eosinophils 0.2 Absolute Basophils 0.0 Sodium 137.9 Potassium 3.9 Chloride 101 Carbon Dioxide 24 Anion Gap 13 BUN 13 Creatinine 1.06 Est GFR ( Amer) > 60 Est GFR (Non-Af Amer) > 60 Glucose 109 Calcium 8.7 Total Bilirubin 0.4 AST 34 ALT 30 Alkaline Phosphatase 66 Total Protein 6.6 Albumin 3.7 Stool for White Cells NO WBCs SEEN Impressions: Chest X-Ray 10/07/18 14:23 IMPRESSION: NO ACUTE RADIOGRAPHIC FINDING IN THE CHEST. Chest/Abdomen CTA 10/07/18 15:57 IMPRESSION: 1. There is no evidence of pulmonary embolus. 2. Emphysematous changes. 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 3. Nonspecific multiple mediastinal lymph nodes. Abdomen/Pelvis CTA 10/07/18 16:12 IMPRESSION: 1. Possible cholelithiasis. 2. Possible constipation. Cannot exclude an enteritis. 3. Small umbilical hernia. 4. 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 Abdomen Ultrasound 10/07/18 17:54 IMPRESSION: NO ACUTE FINDINGS. Assessment & Plan - Diagnosis (1) Fever of unknown origin Is this a current diagnosis for this admission?: Yes Plan: CT chest positive for nonspecific multiple mediastinal lymph nodes. Otherwise CT abdomen chest and pelvis unremarkable. Erythematous rash in the trunk sparing the palms and soles. Denies any recent travel, sick contacts, tick bites, myalgia or arthralgia. He is monogamous and denies any history of STDs. Liver enzymes within normal limits. Urine drug screen negative. HIV negative. Corrected calcium 9.0. Leukocytosis resolved. Blood and urine cultures negative so far. Reactive protein 77, ESR 27. Mild thrombocytopenia. Pending hepatitis panel, 2D echo. We will order C. difficile toxin , obtain serologies to rule out tickborne disease. Continue current antibiotics. Follow-up cultures. (2) ARACELI (acute kidney injury) Is this a current diagnosis for this admission?: Yes Plan: Resolved. Likely due to Bactrim. DC Bactrim. Avoid nephrotoxic agents. Monitor volume status and electrolytes. Abdominal CT and ultrasound negative for any acute kidney abnormalities. (3) Endocarditis Qualifiers: Infective endocarditis organism: unspecified organism Is this a current diagnosis for this admission?: Yes Plan: Negative for Janeway lesion or Osler nodes. Pending 2D echo. Continue broad-spectrum antibiotics. Cultures negative so far (4) Rash Is this a current diagnosis for this admission?: Yes Plan: Rash is getting more diffuse looks more like a drug reaction. Unfortunately no dermatology consult available. Toes are stable. Continue avoiding Bactrim. If it gets worse we will try to transfer patient to tertiary care where he can be seen by a assignment editor. Likely due to Bactrim. DC Bactrim. Workup to rule out any tickborne diseases. (5) Diarrhea Is this a current diagnosis for this admission?: Yes Plan: C. difficile negative. Stool white blood cells negative. Stool ova and parasite, stool Gram stain and culture pending. Monitor volume status. Continue IV fluids.
[2018-10-09] MEDS: ACETAMINOPHEN 325 MG TABLET PO PRN (13:50)
[2018-10-09 21:26] LABS: VANCOMYCIN,TROUGH < 5.0 ug/mL (5.0-20.0)
[2018-10-10 03:36] LABS: HEPATITIS A AB IGM Negative (Negative); HEPATITIS B CORE AB IGM Negative (Negative); HEPATITS B SURFACE ANTIGEN Negative (Negative)
[2018-10-10] MEDS: HEPARIN SOD (PORCINE) 5,000 UNIT/ML 1 ML SYRINGE SUBCUT SCH ×3 (05:10→21:43)
[2018-10-10 06:04] LABS: ABSOLUTE EOSINOPHILS # (AUTO) 0.5 10^3/uL (0.0-0.6); ABSOLUTE LYMPHOCYTES (AUTO) 0.9 10^3/uL (0.5-4.7); ABSOLUTE MONOCYTES (AUTO) 0.6 10^3/uL (0.1-1.4); BASOPHILS % (AUTO) 0.6 % (0-2); EOSINOPHILS % (AUTO) 8.6 % (0-6); HEMATOCRIT 38.3 % (37.9-51.0); HEMOGLOBIN 13.3 g/dL (13.5-17.0); LYMPHOCYTES % (AUTO) 14.5 % (13-45); MEAN CORPUSCULAR HEMOGLOBIN 33.7 pg (27.0-33.4); MEAN CORPUSCULAR HGB CONC 34.7 g/dL (32.0-36.0); MEAN CORPUSCULAR VOLUME 97 fl (80-97); MONOCYTES % (AUTO) 9.8 % (3-13); PLATELET COUNT 161 10^3/uL (150-450); RED BLOOD COUNT 3.94 10^6/uL (4.35-5.55); RED CELL DISTRIBUTION WIDTH 13.3 % (11.5-14.0); SEGMENTED NEUTROPHILS % (AUTO) 66.5 % (42-78); TOTAL CELLS COUNTED % (AUTO) 100 %
[2018-10-10 06:25] LABS: ALANINE AMINOTRANSFERASE 27 U/L (21-72); ALBUMIN 3.4 g/dL (3.5-5.0); ALKALINE PHOSPHATASE 55 U/L (38-126); ANION GAP 12 (5-19); ASPARTATE AMINO TRANSFERASE 29 U/L (17-59); BILIRUBIN,DIRECT 0.3 mg/dL (0.0-0.4); BILIRUBIN,TOTAL 0.6 mg/dL (0.2-1.3); BLOOD UREA NITROGEN 14 mg/dL (7-20); CALCIUM 8.6 mg/dL (8.4-10.2); CARBON DIOXIDE 24 mmol/L (22-30); CHLORIDE 103 mmol/L (98-107); GLUCOSE 105 mg/dL (75-110); TOTAL PROTEIN 6.4 g/dL (6.3-8.2)
[2018-10-10] MEDS: DOXYCYCLINE HYCLATE 100 MG TABLET PO SCH ×2 (10:31→21:46)
[2018-10-10] MEDS: DOCUSATE SODIUM 100 MG CAPSULE PO SCH ×2 (10:31→17:33)
[2018-10-10] MEDS: VANCOMYCIN HCL 1,250 MG in DEXTROSE 5%-WATER 250 ML IV SCH ×2 (11:17→21:47)
[2018-10-10 18:30] LABS: HEPATITIS C VIRUS ANTIBODY >11.0 s/co ratio (0.0-0.9)
[2018-10-11] MEDS: HEPARIN SOD (PORCINE) 5,000 UNIT/ML 1 ML SYRINGE SUBCUT SCH (05:12)
[2018-10-11 05:52] LABS: VANCOMYCIN,TROUGH < 5.0 ug/mL (5.0-20.0)
[2018-10-11] MEDS: VANCOMYCIN HCL 1,250 MG in DEXTROSE 5%-WATER 250 ML IV SCH (10:24)
[2018-10-11] MEDS: DOCUSATE SODIUM 100 MG CAPSULE PO SCH (10:24)
[2018-10-11] MEDS: DOXYCYCLINE HYCLATE 100 MG TABLET PO SCH (10:25)
--- NOTE | 2018-10-11 12:44 | PDOC PROGRESS REPORT ---
Subjective Progress Note for:: 10/10/18 Subjective:: CHARLIE HEALY is a 58 year old male with history of COPD, tobacco abuse, pulmonary aspergillosis, remote history of IV drug abuse, hepatitis C, history of incarceration, lung collapse due to rupture of a bolus status post surgery, pulmonary aspergillosis. Presented to ED complaining of 12 days of spiking fevers, prompting evaluation by primary care who initiated Bactrim by PCP. He has had persistent symptoms vague arthralgia, nausea, pelvic discomfort, persistent watery diarrhea about 7 episodes per day is being initiated on Bactrim. Denies denies facial pain, headache, sore throat, chest pain, focal joint pain vision changes, urethral discharge, weight loss, sweats, recent travel, sick contacts, tick bites, herbal medication, history of lymphoma or leukemia or any other malignancy, or HIV. In the emergency room is found to have a leukocytosis, fever of 103.0 and acute renal failure. CTA chest shows hilar adenopathy, abdomen and pelvis are unremarkable, he received azithromycin, Rocephin and Zosyn then referred to the hospitalist for admission. On physical examination and was noted that he had diffuse purpuric rash in his trunk that he had not noticed prior to admission. 10/08/2018. Patient is comfortably sitting in his bed stating that his fever has subsided since admission but he still having persistent diarrhea. Denies any chest pain, nausea, vomiting, shortness of breath, abdominal pain, constipation or any urinary symptoms. 10/09/2018. No acute events overnight. Patient is currently sitting in his bed not in acute distress and very pleasant and cooperative with physical examination. Patient has had any fever overnight and his diarrhea is improving. He is stating that his rash on his back in 4 months or getting more diffuse however still denying any pain itching or any sign of infection. 10/10/2018. No acute events overnight. Rash has resolved and patient has not had any fevers or the last 24 hours. Patient is pending an echo to rule out endocarditis. Reason For Visit: FEVER OF UNKNOWN ORIGIN, ACUTE RENAL FAILURE Physical Exam Vital Signs: Temp Pulse Resp BP Pulse Ox 98.3 F 69 16 108/67 95 10/11/18 12:17 10/11/18 12:17 10/11/18 12:17 10/11/18 12:17 10/11/18 12:17 Intake & Output 10/10/18 10/11/18 10/12/18 06:59 06:59 06:59 Intake Total 1376 768 Balance 1376 768 Weight 80.1 kg 79.5 kg General appearance: PRESENT: no acute distress, well-developed, well-nourished Respiratory exam: PRESENT: clear to auscultation alvarez. ABSENT: rales, rhonchi, wheezes Cardiovascular exam: PRESENT: RRR. ABSENT: diastolic murmur, rubs, systolic murmur GI/Abdominal exam: PRESENT: normal bowel sounds, soft. ABSENT: distended, guarding, mass, organolmegaly, rebound, tenderness Skin exam: PRESENT: dry, intact, warm. ABSENT: cyanosis, rash Results Laboratory Results: 10/10/18 05:10 10/10/18 05:10 Impressions: Chest X-Ray 10/07/18 14:23 IMPRESSION: NO ACUTE RADIOGRAPHIC FINDING IN THE CHEST. Chest/Abdomen CTA 10/07/18 15:57 IMPRESSION: 1. There is no evidence of pulmonary embolus. 2. Emphysematous changes. 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 3. Nonspecific multiple mediastinal lymph nodes. Abdomen/Pelvis CTA 10/07/18 16:12 IMPRESSION: 1. Possible cholelithiasis. 2. Possible constipation. Cannot exclude an enteritis. 3. Small umbilical hernia. 4. 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 Abdomen Ultrasound 10/07/18 17:54 IMPRESSION: NO ACUTE FINDINGS. Assessment & Plan - Diagnosis (1) Fever of unknown origin Is this a current diagnosis for this admission?: Yes Plan: CT chest positive for nonspecific multiple mediastinal lymph nodes. Otherwise CT abdomen chest and pelvis unremarkable. Erythematous rash in the trunk sparing the palms and soles resolved. Denies any recent travel, sick contacts, tick bites, myalgia or arthralgia. He is monogamous and denies any history of STDs. Liver enzymes within normal limits. Urine drug screen negative. HIV negative. Corrected calcium 9.0. Leukocytosis resolved. Blood and urine cultures negative so far. Reactive protein 77, ESR 27. Mild thrombocytopenia. Pending hepatitis panel, 2D echo. We will order C. difficile toxin , obtain serologies to rule out tickborne disease. Continue current antibiotics. Follow-up cultures. (2) ARACELI (acute kidney injury) Is this a current diagnosis for this admission?: Yes Plan: Resolved. Likely due to Bactrim. DC Bactrim. Avoid nephrotoxic agents. Monitor volume status and electrolytes. Abdominal CT and ultrasound negative for any acute kidney abnormalities. (3) Endocarditis Qualifiers: Infective endocarditis organism: unspecified organism Is this a current diagnosis for this admission?: Yes Plan: Negative for Janeway lesion or Osler nodes. Pending 2D echo. Continue broad-spectrum antibiotics. Cultures negative so far (4) Rash Is this a current diagnosis for this admission?: Yes Plan: Resolved. Most likely due to Bactrim. Continue avoiding Bactrim. If it gets worse we will try to transfer patient to tertiary care where he can be seen by a surgical dressing maker. Likely due to Bactrim. DC Bactrim. Workup to rule out any tickborne diseases. (5) Diarrhea Is this a current diagnosis for this admission?: Yes Plan: C. difficile negative. Stool white blood cells negative. Stool ova and parasite, stool Gram stain and culture pending. Monitor volume status. Continue IV fluids.
--- NOTE | 2018-10-11 12:47 | PDOC DISCHARGE SUMMARY ---
General - Admit/Disc Date/PCP Admission Date/Primary Care Provider: 10/09/18 16:03 JOSE ANTONIO SAMUEL NP Discharge Date: 10/11/18 - Discharge Diagnosis (1) Fever of unknown origin Is this a current diagnosis for this admission?: Yes (2) ARACELI (acute kidney injury) Is this a current diagnosis for this admission?: Yes (3) Endocarditis Is this a current diagnosis for this admission?: Yes (4) Rash Is this a current diagnosis for this admission?: Yes (5) Diarrhea Is this a current diagnosis for this admission?: Yes - Additional Information Resuscitation Status: Full Code Prescriptions: Doxycycline Calcium [Vibramycin] 100 mg PO BID 10 Days #20 ml Home Medications: Doxycycline Calcium [Vibramycin] 100 mg PO BID 10 Days #20 ml 10/10/18 History of Present Illness History of Present Illness: CHARLIE HEALY is a 58 year old male with history of COPD, tobacco abuse, pulmonary aspergillosis, remote history of IV drug abuse, hepatitis C, history of incarceration, lung collapse due to rupture of a bolus status post surgery, pulmonary aspergillosis. Presented to ED complaining of 12 days of spiking fevers, prompting evaluation by primary care who initiated Bactrim by PCP. He has had persistent symptoms vague arthralgia, nausea, pelvic discomfort, persistent watery diarrhea about 7 episodes per day is being initiated on Bactrim. Denies denies facial pain, headache, sore throat, chest pain, focal joint pain vision changes, urethral discharge, weight loss, sweats, recent travel, sick contacts, tick bites, herbal medication, history of lymphoma or leukemia or any other malignancy, or HIV. In the emergency room is found to have a leukocytosis, fever of 103.0 and acute renal failure. CTA chest shows hilar adenopathy, abdomen and pelvis are unremarkable, he received azithromycin, Rocephin and Zosyn then referred to the hospitalist for admission. On physical examination and was noted that he had diffuse purpuric rash in his trunk that he had not noticed prior to admission. Hospital Course Hospital Course: (1) Fever of unknown origin CT chest positive for nonspecific multiple mediastinal lymph nodes. Otherwise CT abdomen chest and pelvis unremarkable. Erythematous rash in the trunk sparing the palms and soles resolved. Denies any recent travel, sick contacts, tick bites, myalgia or arthralgia. He is monogamous and denies any history of STDs. Liver enzymes within normal limits. Urine drug screen negative. HIV negative. Corrected calcium 9.0. Leukocytosis resolved. Blood and urine cultures negative so far. Reactive protein 77, ESR 27. Mild thrombocytopenia. Pending hepatitis panel, 2D echo. C. difficile negative. Tickborne diseases serology was sent however not available at time of discharge patient was asked strongly encouraged to follow-up with his PCP to get the results of labs. She was placed on IV antibiotics and was switched to p.o. doxycycline on discharge patient was given 10 more days of doxycycline for empiric treatment of tickborne diseases. (2) ARACELI (acute kidney injury) Resolved. Likely due to Bactrim. DC Bactrim. Avoid nephrotoxic agents. Electrolytes and volume status remained within normal limits. Abdominal CT and ultrasound negative for any acute kidney abnormalities. (3) Endocarditis Negative for Janeway lesion or Osler nodes. Transthoracic 2D echo negative for endocarditis. Blood cultures negative at the time of discharge. (4) Rash Resolved. Most likely due to Bactrim. Continue avoiding Bactrim. If it gets worse we will try to transfer patient to tertiary care where he can be seen by a semiautomatic taper operator. Likely due to Bactrim. DC Bactrim. Workup to rule out any tickborne diseases pending at the time of discharge. (5) Diarrhea Resolved. C. difficile negative. Stool white blood cells negative. Stool ova and parasite, stool Gram stain and culture pending. Physical Exam Vital Signs: Temp Pulse Resp BP Pulse Ox 98.3 F 69 16 108/67 95 10/11/18 12:17 10/11/18 12:17 10/11/18 12:17 10/11/18 12:17 10/11/18 12:17 Intake & Output 10/10/18 10/11/18 10/12/18 06:59 06:59 06:59 Intake Total 1376 768 Balance 1376 768 Weight 80.1 kg 79.5 kg General appearance: PRESENT: no acute distress, well-developed, well-nourished Neck exam: ABSENT: carotid bruit, JVD, lymphadenopathy, thyromegaly Respiratory exam: PRESENT: clear to auscultation alvarez. ABSENT: rales, rhonchi, wheezes Cardiovascular exam: PRESENT: RRR. ABSENT: diastolic murmur, rubs, systolic murmur GI/Abdominal exam: PRESENT: normal bowel sounds, soft. ABSENT: distended, guarding, mass, organolmegaly, rebound, tenderness Results Laboratory Results: 10/10/18 05:10 10/10/18 05:10 Impressions: Chest X-Ray 10/07/18 14:23 IMPRESSION: NO ACUTE RADIOGRAPHIC FINDING IN THE CHEST. Chest/Abdomen CTA 10/07/18 15:57 IMPRESSION: 1. There is no evidence of pulmonary embolus. 2. Emphysematous changes. 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 3. Nonspecific multiple mediastinal lymph nodes. Abdomen/Pelvis CTA 10/07/18 16:12 IMPRESSION: 1. Possible cholelithiasis. 2. Possible constipation. Cannot exclude an enteritis. 3. Small umbilical hernia. 4. 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 Abdomen Ultrasound 10/07/18 17:54 IMPRESSION: NO ACUTE FINDINGS. Qualifiers - * PATIENT BEING DISCHARGED WITH ANY OF THE FOLLOWING DIAGNOSIS: No
[2018-10-11 13:18] VITALS: BP 112/72
--- NOTE | 2018-10-11 13:27 | XCELERA REPORT ---
[address] [address] Transthoracic Echocardiogram Report Name: CHARLIE HEALY Age: 58 yrs Gender: Male : 1960 Patient Status: Inpatient Patient Location: [address] [place] [address] Study Date: 10/10/2018 06:48 PM Height: 70 in Weight: 176 lb BSA: 2.0 m2 Procedure: A two-dimensional transthoracic echocardiogram with color flow and Doppler was performed. The study was technically limited with all images being suboptimal in quality. Reason For Study: iv drug abuse FUO w systolic murmur History: iv drug abuse FUO w systolic murmur. Ordering Physician: INDER LARIOS Performed By: Paulina Howell Interpretation Summary Recommend HOMA if clinical suspicion for endocarditis is high. The left ventricle is normal in size. Parasternal long xis vieww is 'Off [place]'.No LVH. LV EF is 60% Left ventricular systolic function is normal. Doppler measurements suggest impaired left ventricular relaxation, which is associated with grade I/IV or mild diastolic dysfunction The left ventricular wall motion is normal. There is no thrombus. The left atrial size is normal. There is no evidence of mitral valve prolapse. There is no mitral valve stenosis. There is a trace amount of mitral regurgitation There is no LVOT obstruction. No aortic regurgitation is present. There is no tricuspid stenosis. There is a trace amount of tricuspid regurgitation Right ventricular systolic pressure is normal. RVSP is 10 to 15 mmof Hg , with RA mean of 5 to 10. There is no pericardial effusion. Recommend HOMA if clinical suspicion for endocarditis is high. MMode/2D Measurements & Calculations RVDd: 2.4 cm LVIDd: 4.7 cm FS: 24.5 % Ao root diam: 3.9 cm IVSd: 1.1 cm LVIDs: 3.5 cm EDV(Teich): 100.7 ml Ao root area: 12.2 cm2 LVPWd: 1.0 cm ESV(Teich): 51.7 ml LA dimension: 2.4 cm EF(Teich): 48.7 % LVOT diam: 1.8 cm LVOT area: 2.7 cm2 Doppler Measurements & Calculations MV E max melba: MV P1/2t max melba: Ao V2 max: LV V1 max P.8 cm/sec 72.9 cm/sec 113.2 cm/sec 3.4 mmHg MV A max melba: MV P1/2t: 71.4 msec Ao max P.1 mmHg LV V1 max: 78.5 cm/sec MVA(P1/2t): 3.1 cm2 FRANKI(V,D): 2.2 cm2 92.3 cm/sec MV E/A: 0.66 MV dec slope: 299.2 cm/sec2 MV dec time: 0.19 sec PA V2 max: TR max melba: MV P1/2t-pr_phl: 77.6 cm/sec 112.5 cm/sec 71.4 msec PA max PG: TR max P.1 mmHg 2.4 mmHg Left Ventricle The left ventricle is normal in size. Parasternal long xis vieww is 'Off [place]'.No LVH. LV EF is 60%. Left ventricular systolic function is normal. Doppler measurements suggest impaired left ventricular relaxation, which is associated with grade I/IV or mild diastolic dysfunction. The left ventricular wall motion is normal. There is no thrombus. Right Ventricle The right ventricle is not well visualized secondary to technical limitations. Atria Right atrium not well visualized secondary to technical limitations. The left atrial size is normal. Mitral Valve There is no evidence of mitral valve prolapse. There is no vegetation seen on the mitral valve. There is no mitral valve stenosis. There is a trace amount of mitral regurgitation. Aortic Valve There is no aortic valvular vegetation. There is no aortic valve stenosis. There is no LVOT obstruction. No aortic regurgitation is present. Tricuspid Valve There is no tricuspid stenosis. There is a trace amount of tricuspid regurgitation. Right ventricular systolic pressure is normal. RVSP is 10 to 15 mmof Hg , with RA mean of 5 to 10. Pulmonic Valve The pulmonic valve is not well visualized. Great Vessels The aortic root is not well visualized but is probably normal size. Effusions There is no pericardial effusion. : INDER LARIOS > Luanne Overton
[2018-10-12 15:37] LABS: E. CHAFFEENSIS IGG TITER Negative (Neg:<1:64)
[2018-10-12 19:07] LABS: E. CHAFFEENSIS IGM TITER Negative (Neg:<1:20); LYME DISEASE IGM AB <0.80 index (0.00-0.79)
[2018-10-12 21:36] LABS: Q FEVER PHASE I AB Negative (Neg:<1:16); ROCKY MTN SPOTTED FEV IGG EIA Negative (Negative)
[2018-10-13 07:39] LABS: Q FEVER PHASE II AB Negative (Neg:<1:16)
== END 2018-10-11 13:57 | disposition home or self-care (01) | DRG 683 ==
LOC: ER 14:15 → EH 22:05 → 5 23:59 → OBSVTOIN 10-09 16:03
PROVIDERS: ADMIT Internal Medicine; ATTEND Internal Medicine
PROC: 3E0F73Z Introduction of Anti-inflammatory into Respiratory Tract, Via Natural or Artificial Opening (ICD-10-PCS; principal; 2018-10-08)
PROC: 3E02340 Introduction of Influenza Vaccine into Muscle, Percutaneous Approach (ICD-10-PCS; 2018-10-11)
DX: N17.9 Acute kidney failure, unspecified (principal); I38 Endocarditis, valve unspecified; K52.1 Toxic gastroenteritis and colitis; R50.9 Fever, unspecified; J44.9 Chronic obstructive pulmonary disease, unspecified; B19.20 Unspecified viral hepatitis C without hepatic coma; D72.829 Elevated white blood cell count, unspecified; D69.6 Thrombocytopenia, unspecified; T37.0X5A Adverse effect of sulfonamides, initial encounter; L27.0 Generalized skin eruption due to drugs and medicaments taken internally; K42.9 Umbilical hernia without obstruction or gangrene; F17.210 Nicotine dependence, cigarettes, uncomplicated; Z23 Encounter for immunization; Z83.6 Family history of other diseases of the respiratory system; Z82.49 Family history of ischemic heart disease and other diseases of the circulatory system
CPT/HCPCS: 36415; 71045; 71275; 74174; 76705; 80053; 80074; 80202; 80307; 81001; 82565; 82784; 83605; 85025; 85652; 86140; 86617; 86618; 86701; 86757; 87040; 87045; 87086; 87177; 87205; 87493; 87804; 89055; 90471; 90686; 93306; 96361; 96365; 96366; 96367; 96375; 96376; 99285; 99406; G0008; G0378; J0456; J0696; J1200; J1885; J2543; J2765; J3370; J7030; J7060; J7120